=== PATIENT | male | born 1945 | race Caucasian/White ===

== ENCOUNTER 2018-12-29 19:48 | Inpatient (IN) ==
[2018-12-29] MEDS ORDERED: ACETAMINOPHEN 325 MG TABLET PO PRN (21:29)
[2018-12-29] MEDS ORDERED: diphenhydrAMINE CAP 25 MG CAPSULE PO PRN (21:29)
[2018-12-29] MEDS ORDERED: SODIUM CHLORIDE 0.9% 1,000 ML IV PRN (21:29)
[2018-12-29] MEDS ORDERED: GLUCAGON 1 MG VIAL IM PRN (21:29)
[2018-12-29] MEDS ORDERED: MORPHINE 4 MG/1 ML VIAL IV PRN (21:29)
[2018-12-29] MEDS ORDERED: NICOTINE 21 MG/24 HR PATCH TRANSDERM PRN (21:29)
[2018-12-29] MEDS ORDERED: hydrALAZINE 20 MG/1 ML VIAL IV PRN (21:29)
[2018-12-29] MEDS ORDERED: BISACODYL 5 MG TABLET PO PRN (21:29)
[2018-12-29] MEDS ORDERED: DEXTROSE 50% 25 GM/50 ML VIAL IV PRN (21:29)
[2018-12-29] MEDS ORDERED: ONDANSETRON 4 MG/2 ML VIAL IV PRN (21:29)
[2018-12-29 23:46] LABS: Risk Ratio 1.86; Thyroid Stimulating Hormone 1.55 uIU/ml (0.358-3.74); VLDL CHOLESTEROL 15.6 MG/DL
[2018-12-30] MEDS ORDERED: DEXTROSE 10% 250 ML IV ONE (00:25)
[2018-12-30] MEDS: DEXTROSE 10% 250 ML BAG IV PRN ×2 (00:25→08:12)
[2018-12-30 01:16] LABS: Basophils % 0.3 % (0.0-0.8); Eosinophils # 0.1 10*3/uL (0.0-0.87); Eosinophils % 1.1 % (0.00-10.9); Hematocrit 21.8 VOL% (42.0-52.0); Hemoglobin 6.9 GM/DL (14.0-18.0); Immature Granulocytes % 0.3 %; Immature Granulocytes Absolute 0.02 #; Lymphocytes # 1.5 10*3/uL (1.4-4.0); Lymphocytes % 23.1 % (21.2-54.2); Mean Corpuscular HGB Conc 31.7 GM/DL (32-36); Mean Corpuscular Volume 92.8 FL (87-102); Mean Platelet Volume 11.1 FL (9.6-12.0); Monocytes % 9.3 % (1.7-12.7); Neutrophils % 65.9 % (38.7-73.9); Platelet Count 210 T/CUMM (130-400); Red Blood Count 2.35 MC/CUMM (3.8-5.5); Red Cell Distribution Width 13.4 % (9.3-17.3); White Blood Count 6.4 T/CUMM (4-12)
[2018-12-30 01:21] LABS: Alanine Aminotransferase 16 U/L (16-61); Albumin 3.5 G/DL (3.4-5.0); Alkaline Phosphatase 49 U/L (45-117); Aspartate Amino Transferase 25 U/L (0-37); Bilirubin,Total < 0.39 MG/DL (0.2-1.0); Blood Urea Nitrogen 113 MG/DL (7-18); Glucose 82 MG/DL (74-106); Osmolality,Calculated 311.5 MOS/KG (273-304); Total Protein 7.6 G/DL (6.4-8.3)
[2018-12-30] MEDS: INSULIN REGULAR 100 UNIT/ML SUBCUT SCH ×4 (08:15→22:51)
[2018-12-30 08:52] LABS: Hematocrit 22.5 VOL% (42.0-52.0); Hemoglobin 7.1 GM/DL (14.0-18.0)
[2018-12-30] MEDS: PANTOPRAZOLE 40 MG TABLET PO SCH (10:45)
[2018-12-30 11:45] LABS: % Iron Saturation 13.1 % (18-50)
[2018-12-30] MEDS ORDERED: SODIUM CHLORIDE 0.9% 1,000 ML IV PRN (12:26)
[2018-12-30] MEDS: SODIUM CHLORIDE 0.9% 1,000 ML IV SCH (12:44)
[2018-12-30] MEDS: CARVEDILOL 6.25 MG TABLET PO SCH (16:25)
[2018-12-30 19:51] LABS: Hematocrit 25.3 VOL% (42.0-52.0)
[2018-12-31 06:10] LABS: Calcium 8.3 MG/DL (8.5-10.1); Osmolality,Calculated 312.5 MOS/KG (273-304)
[2018-12-31] MEDS: INSULIN REGULAR 100 UNIT/ML SUBCUT SCH ×4 (07:36→21:30)
[2018-12-31] MEDS: PANTOPRAZOLE 40 MG TABLET PO SCH (08:16)
[2018-12-31] MEDS: ATORVASTATIN 20 MG TABLET PO SCH (08:16)
[2018-12-31] MEDS: SODIUM CHLORIDE 0.9% 1,000 ML IV SCH (08:16)
[2018-12-31] MEDS: CARVEDILOL 6.25 MG TABLET PO SCH ×2 (08:16→16:06)
[2019-01-01 06:32] LABS: Basophils % 0.7 % (0.0-0.8); Eosinophils # 0.3 10*3/uL (0.0-0.87); Eosinophils % 4.9 % (0.00-10.9); Hematocrit 24.9 VOL% (42.0-52.0); Hemoglobin 7.8 GM/DL (14.0-18.0); Immature Granulocytes % 0.2 %; Immature Granulocytes Absolute 0.01 #; Lymphocytes # 1.6 10*3/uL (1.4-4.0); Lymphocytes % 27.5 % (21.2-54.2); Mean Corpuscular HGB Conc 31.3 GM/DL (32-36); Mean Corpuscular Volume 92.2 FL (87-102); Mean Platelet Volume 11.2 FL (9.6-12.0); Monocytes % 12.2 % (1.7-12.7); Neutrophils % 54.5 % (38.7-73.9); Platelet Count 168 T/CUMM (130-400); White Blood Count 5.8 T/CUMM (4-12)
[2019-01-01 07:04] LABS: Calcium 8.4 MG/DL (8.5-10.1); Osmolality,Calculated 313.4 MOS/KG (273-304)
[2019-01-01] MEDS: PANTOPRAZOLE 40 MG TABLET PO SCH (08:07)
[2019-01-01] MEDS: ATORVASTATIN 20 MG TABLET PO SCH (08:07)
[2019-01-01] MEDS: FERROUS SULFATE 325 MG TABLET PO SCH (08:07)
[2019-01-01] MEDS: CARVEDILOL 6.25 MG TABLET PO SCH ×2 (08:07→16:37)
[2019-01-01] MEDS: INSULIN REGULAR 100 UNIT/ML SUBCUT SCH ×4 (08:07→21:25)
[2019-01-01] MEDS: ZINC OXIDE PASTE 113 GM TUBE TOP SCH ×2 (15:25→21:25)
[2019-01-02 05:24] LABS: Basophils # 0.1 10*3/uL (0.0-0.2); Basophils % 0.7 % (0.0-0.8); Eosinophils # 0.3 10*3/uL (0.0-0.87); Eosinophils % 3.6 % (0.00-10.9); Hematocrit 25.6 VOL% (42.0-52.0); Hemoglobin 7.9 GM/DL (14.0-18.0); Immature Granulocytes % 0.3 %; Immature Granulocytes Absolute 0.02 #; Lymphocytes # 1.7 10*3/uL (1.4-4.0); Lymphocytes % 23.4 % (21.2-54.2); Mean Corpuscular HGB Conc 30.9 GM/DL (32-36); Mean Corpuscular Volume 92.8 FL (87-102); Mean Platelet Volume 10.9 FL (9.6-12.0); Monocytes % 12.3 % (1.7-12.7); Neutrophils % 59.7 % (38.7-73.9); Platelet Count 174 T/CUMM (130-400); Red Blood Count 2.76 MC/CUMM (3.8-5.5); Red Cell Distribution Width 13.9 % (9.3-17.3); White Blood Count 7.2 T/CUMM (4-12)
[2019-01-02 05:40] LABS: Calcium 8.7 MG/DL (8.5-10.1)
[2019-01-02] MEDS: INSULIN REGULAR 100 UNIT/ML SUBCUT SCH ×4 (08:10→21:29)
[2019-01-02] MEDS: ZINC OXIDE PASTE 113 GM TUBE TOP SCH ×2 (08:51→21:30)
[2019-01-02] MEDS: FERROUS SULFATE 325 MG TABLET PO SCH (08:51)
[2019-01-02] MEDS: PANTOPRAZOLE 40 MG TABLET PO SCH (08:51)
[2019-01-02] MEDS: CARVEDILOL 6.25 MG TABLET PO SCH ×2 (08:51→16:39)
[2019-01-02] MEDS: ATORVASTATIN 20 MG TABLET PO SCH (09:07)
[2019-01-03 06:14] LABS: Calcium 8.8 MG/DL (8.5-10.1); Osmolality,Calculated 310.8 MOS/KG (273-304)
[2019-01-03] MEDS: INSULIN REGULAR 100 UNIT/ML SUBCUT SCH ×2 (07:47→11:22)
[2019-01-03] MEDS: CARVEDILOL 6.25 MG TABLET PO SCH (08:18)
[2019-01-03] MEDS: ZINC OXIDE PASTE 113 GM TUBE TOP SCH (08:18)
[2019-01-03] MEDS: PANTOPRAZOLE 40 MG TABLET PO SCH (08:18)
[2019-01-03] MEDS: FERROUS SULFATE 325 MG TABLET PO SCH (08:18)
[2019-01-03] MEDS: ATORVASTATIN 20 MG TABLET PO SCH (08:18)
[2019-01-03] MEDS ORDERED: amLODIPine 2.5 MG TABLET PO SCH (09:00)
[2019-01-03 11:24] VITALS: BP 136/80
== END 2019-01-03 15:03 | DRG 683 ==
LOC: EDUNIT# → EDBD → N.ED 19:48 → N.EDINP 21:29 → N.5E 23:33
PROVIDERS: ADMIT Internal Medicine; ATTEND Internal Medicine